=== PATIENT | male | born 1950 | race Caucasian/White ===

== ENCOUNTER 2016-06-01 21:00 | Emergency (ER) | payer MEDICARE ==
[2016-06-01] MEDS ORDERED: ALBUTEROL SULFATE 2.5 MG/0.5 ML VIAL.NEB IH ONE (21:06)
--- NOTE | 2016-06-01 21:26 | ERNOTE ---
Dyspnea - General Presenting Symptoms: shortness of breath Time Seen by Provider: 06/01/16 21:18 Source: patient Exam Limitations: no limitations - Immun/Allergies/Home Medications Allergies/Adverse Reactions: Allergies No Known Allergies Allergy (Unverified 06/01/16 21:36) Home Medications: HOME MEDICATIONS Unobtainable 06/01/16 [Last Taken Unknown] - History of Present Illness Severity: moderate, severe Initiating event: Reports: out of meds Physical Exam - Physical Exam General Appearance: Present: wd/wn, alert, no apparent distress Ears, Nose, Throat: Present: normal ENT inspection Neck: Present: normal inspection, nontender Respiratory: Present: respiratory distress, decreased breath sounds, wheezing - expiratory Cardiovascular/Chest: Present: no murmur, tachycardia Extremity Exam: Present: normal inspection Neurological Exam: Present: alert, oriented, normal mood/affect, no motor/ sensory deficits Skin Exam: Present: normal color, warm/dry ED Progress - Progress/Reassessment Progress:: Improved Progress Note-Subjective: 06/01/16 22:19 SaO2 99% on room air after single nebulized albuterol tx. Departure Clinical Impression: Wheezing - Departure Disposition: Home self-care Condition: Good Instructions: Bronchospasm, Adult Additional Instructions: See your regular doctor if not improving.
[2016-06-01] MEDS ORDERED: ALBUTEROL SULFATE 200 PUFF INHALER IH ONE (22:22)
[2016-06-01] MEDS ORDERED: ALBUTEROL SULFATE 60 PUFF INHALER IH ONE (22:30)
[2016-06-01 22:50] VITALS: BP 119/73
== END 2016-06-01 22:47 | disposition home or self-care (01) ==
LOC: ER 21:00
DX: R06.2 Wheezing (principal)

== ENCOUNTER 2016-06-23 01:33 | Emergency (ER) | payer MEDICARE ==
[2016-06-23] MEDS ORDERED: ALBUTEROL SULFATE/IPRATROPIUM 3 ML NEBU IH ONE ×2 (01:37→01:38)
[2016-06-23] MEDS ORDERED: METHYLPREDNISOLONE SOD SUCC/PF 125 MG/2 ML VIAL IV ONE (01:38)
[2016-06-23] MEDS ORDERED: METHYLPREDNISOLONE SOD SUCC/PF 125 MG/2 ML VIAL ONE (01:48)
[2016-06-23 01:51] LABS: Hematocrit 48.9 % (42.0-52.0); Hemoglobin 16.4 gm/dL (13.5-18.0); Mean Cell Volume 88.7 fl (78-100); Mean Corpuscular Hemoglobin 29.8 pg (27-31); Mean Corpuscular Hgb Conc 33.5 g/dl (32-36); Mean Platelet Volume 10.3 fl (6.0-9.5); Neutrophil # 7.7 K/mm3 (1.3-6.0); Neutrophil % 64.4 % (42-75.0); Platelet Count 217 K/mm3 (150-450); Red Blood Count 5.51 M/mm3 (4.7-6.0); Red Cell Distribution Width 13.1 % (11.5-14.0)
[2016-06-23 02:06] LABS: Albumin * 4.1 gm/dl (3.4-5.0); Anion Gap 14.6 mmol/L (6.8-13.8); BUN/Creatinine Ratio 30.8 (9.0-21.6); Bilirubin, Total 0.8 mg/dL (0.0-1.1); Calcium * 9.4 mg/dL (7.9-10.9); Potassium 4.6 mmol/L (3.4-4.6); Total Protein 7.8 gm/dL (6.2-8.2)
[2016-06-23] MEDS ORDERED: NORMAL SALINE 1,000 ML IV ONE (02:21)
--- NOTE | 2016-06-23 02:21 | ERNOTE ---
Dyspnea - General Presenting Symptoms: shortness of breath, difficulty of breathing Time Seen by Provider: 06/23/16 01:37 Source: patient Exam Limitations: no limitations - Immun/Allergies/Home Medications Immunizations: IMMUNIZATION HX Immunizations Up to Date Yes History of Influenza Vaccine No Hx Pneumococcal Vaccination No Allergies/Adverse Reactions: Allergies No Known Allergies Allergy (Unverified 06/01/16 21:36) Home Medications: HOME MEDICATIONS Azithromycin 250 mg PO DAILY #4 tablet 06/23/16 [Last Taken Unknown] Ipratropium/Albuterol Sulfate [Combivent Respimat Inhal [place]] 1 puff IH QID #1 inhaler 06/23/16 [Last Taken Unknown] Methylprednisolone [Medrol Dosepak] 4 mg PO DAILY #21 tab.ds.pk 06/23/16 [Last Taken Unknown] - History of Present Illness Narrative: Pt describes increasing shortness of breath despite using increasing amounts of his rescue inhaler Severity: moderate, severe 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, 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 Initiating event: Reports: upper resp illness Frequency of episodes: Reports: frequent episodes Modifying Factors - (Improves): Reports: albuterol, oxygen Modifying Factors (Worsens): Reports: activity, coughing Associated Symptoms-Dyspnea: Reports: cough, wheezing Prior Treatment: Reports: recently seen, treated by physician - about a month ago for similar symptoms Review of Systems - Review of Systems Constitutional: Present: See HPI EYE: Present: no symptoms reported ENT: Present: no symptoms reported Respiratory: Present: See HPI Cardiology: Absent: chest pain Gastrointestinal/Abdominal: Absent: nausea, vomiting Genitourinary: Present: no symptoms reported Musculoskeletal: Present: no symptoms reported Skin: Present: no symptoms reported Neurological: Present: no symptoms reported Endocrine: Present: no symptoms reported Hematologic/Lymphatic: Present: no symptoms reported Psych: Present: no symptoms reported - Patient's Past Medical History Patient History - Medical: Anxiety, Diabetes Type 2 Patient History - Cardiac/Respiratory: Asthma, COPD, Hypertension, Hyperlipidemia Patient History - Cancer: No Hx of Cancer Patient History - Other: None - Social History Living Situations: alone Psych History: No pertinent hx Smoking Status: Never smoker Alcohol Use: occasionally Drug Use: none - Immunizations Immunizations Up to Date: Yes Hx Pneumococcal Vaccination: No History of Influenza Vaccine: No Physical Exam - Physical Exam General Appearance: Present: wd/wn, alert, moderate distress Eye Exam: Normal inspection: bilateral Ears, Nose, Throat: Present: normal ENT inspection Respiratory: Present: respiratory distress, accessory muscle use, expiration ( prolonged), crackles, wheezing Cardiovascular/Chest: Present: tachycardia Extremity Exam: Present: normal inspection, normal range of motion Neurological Exam: Present: alert, oriented, normal mood/affect Skin Exam: Present: normal color, warm/dry ED Progress - Results and Orders Patient's Lab Results:: I have reviewed the patient's lab results. Results and Orders: Laboratory Tests 06/23/16 06/23/16 01:37 01:37 WBC 12.0 H Hgb 16.4 Hct 48.9 Plt Count 217 Sodium 141 Potassium 4.6 Chloride 103 Carbon Dioxide 28.0 Anion Gap 14.6 H BUN 41 H D Creatinine 1.33 Est GFR (Non-Af Amer) 57 L Random Glucose 121 H Calcium 9.4 Total Bilirubin 0.8 AST 15 ALT 22 Alkaline Phosphatase 89 Total Protein 7.8 Albumin 4.1 - Vital Signs Patient's Vital Signs:: I have reviewed the patient's vital signs. Vital Signs: Vital Signs 06/23/16 01:36 Temperature 36.3 C L Pulse Rate 103 H Respiratory 20 Rate Blood Pressure 180/104 O2 Sat by Pulse 86 L Oximetry - X-Ray X-Ray #1 X-Ray: chest Interpretation: Interp. by me X-ray Comments: No infiltrate or effusion. - Progress/Reassessment Chief Complaint: Dyspnea Progress:: Improved Departure Clinical Impression: Acute exacerbation of chronic obstructive airways disease - Departure Disposition: Home Follow Up Needed Condition: Good Instructions: Chronic Obstructive Pulmonary Disease Exacerbation, [id number] Additional Instructions: Take your medications regularly and see your primary care physician as soon as possible Prescriptions: Azithromycin 250 mg PO DAILY #4 tablet Ipratropium/Albuterol Sulfate [Combivent Respimat Inhal [place]] 1 puff IH QID #1 inhaler Methylprednisolone [Medrol Dosepak] 4 mg PO DAILY #21 tab.ds.pk
[2016-06-23] MEDS ORDERED: AZITHROMYCIN 250 MG TABLET PO ONE (03:12)
[2016-06-23] MEDS ORDERED: AZITHROMYCIN 250 MG TABLET ONE (03:17)
[2016-06-23] MEDS ORDERED: ALBUTEROL SULFATE 200 PUFF INHALER IH ONE (03:20)
[2016-06-23] MEDS ORDERED: ALBUTEROL SULFATE 60 PUFF INHALER IH ONE (03:28)
[2016-06-23 03:40] VITALS: BP 134/82
== END 2016-06-23 03:41 | disposition home or self-care (01) ==
LOC: ER 01:33
DX: J44.1 Chronic obstructive pulmonary disease with (acute) exacerbation (principal)